=== PATIENT | male | born 1975 ===

== ENCOUNTER 2016-09-10 23:08 | Emergency (ER) | payer MEDICAID ==
[2016-09-10 23:08] VITALS: BMI 29.8
[2016-09-11 01:49] LABS: BASO % 0.4 % (0.0-2.0); EOS # 0.3 K/uL (0.0-0.7); EOS % 3.9 % (0.0-4.0); LYMPH # 1.4 K/uL (1.0-4.3); LYMPH % 21.2 % (20.0-40.0); MEAN CELL VOLUME 90.6 fL (80.0-94.0); MEAN CORPUSCULAR HEMOGLOBIN 30.9 pg (27.0-31.0); MEAN CORPUSCULAR HGB CONC 34.1 g/dL (33.0-37.0); MEAN PLATELET VOLUME 7.6 fL (7.2-11.7); MONO # 0.8 K/uL (0.0-0.8); NRBC % 0.1 % (0.0-2.0); RED CELL DISTRIBUTION WIDTH 12.6 % (11.5-14.5); WHITE BLOOD COUNT 6.5 K/uL (4.8-10.8)
[2016-09-11] MEDS ORDERED: Sodium Chloride 0.9% 1,000 ML IV ONE (01:54)
[2016-09-11] MEDS ORDERED: Iohexol 240 (50 ml) PO STA (01:54)
[2016-09-11 01:57] LABS: RBC URINE < 1 /hpf (0-3); URINE BILIRUBIN NEGATIVE (NEGATIVE); URINE BLOOD NEGATIVE (NEGATIVE); URINE COLOR Yellow (YELLOW); URINE GLUCOSE (UA) 3+ mg/dL (Normal); URINE KETONE TRACE mg/dL (NEGATIVE); URINE LEUKOCYTE ESTERASE NEG Leu/uL (Negative); URINE PROTEIN NEGATIVE (NEGATIVE); URINE UROBILINOGEN NORMAL mg/dL (0.2-1.0); WBC URINE < 1 /hpf (0-5)
[2016-09-11] MEDS ORDERED: DiphenhydrAMINE 50 mg/ml Inj IVP STA (01:59)
[2016-09-11 02:03] LABS: CHLORIDE 99 mmol/L (98-107)
[2016-09-11] MEDS ORDERED: Sodium Chloride 0.9% 1,000 ML ONE (02:03)
[2016-09-11] MEDS ORDERED: Iohexol 240 (50 ml) ONE (02:03)
[2016-09-11 02:04] LABS: POTASSIUM 3.9 mmol/L (3.6-5.2); SODIUM 138 mmol/L (132-148)
[2016-09-11] MEDS ORDERED: DiphenhydrAMINE 50 mg/ml Inj ONE (02:04)
[2016-09-11 02:06] LABS: ALB/GLOB RATIO 1.2 (1.0-2.1); ALKALINE PHOSPHATASE 81 U/L (38-126); AST/SGOT 18 U/L (17-59); BILIRUBIN,TOTAL 0.4 mg/dL (0.2-1.3); BLOOD UREA NITROGEN 12 mg/dL (9-20); CARBON DIOXIDE 23 mmol/L (22-30); GFR AFRICAN-AMERICAN > 60; TOTAL PROTEIN 7.4 g/dL (6.3-8.3)
[2016-09-11 02:07] LABS: ALT/SGPT 31 U/L (21-72); GLUCOSE,RANDOM 299 mg/dL (75-110)
[2016-09-11] MEDS ORDERED: Iodixanol 320 MG/ML 100 ML BOTTLE IV ONE (03:32)
[2016-09-11 03:47] VITALS: RESP 20
--- NOTE | 2016-09-11 04:47 | CT ---
EXAM: CT Abdomen and Pelvis With Intravenous Contrast. CLINICAL HISTORY: 41 years old, male; Pain; Abdominal pain; Prior surgery; Surgery type: Hernia; Patient HX: 08-26-16; Additional info: Abd pain TECHNIQUE: Axial computed tomography images of the abdomen and pelvis with intravenous contrast. This CT exam was performed using one or more of the following dose reduction techniques: automated exposure control, adjustment of the mA and/or kV according to patient size, and/or use of iterative reconstruction technique. Coronal and sagittal reformatted images were created and reviewed. CONTRAST: 100 mL of [id number] administered intravenously. EXAM DATE/TIME: Exam ordered 09/11/2016 1:59 AM COMPARISON: CT - ABD PELVIS PO IV CONTRAST 07/15/2016 1:24:13 AM FINDINGS: Lower thorax: Lung bases with mild dependent atelectatic change right greater than left. Air in the esophagus in keeping with reflux. Small hiatus hernia. ABDOMEN: Liver: 19.6cm mild steatosis Gallbladder and bile ducts: Gallbladder is collapsed. No calcified stones. No ductal dilation. Pancreas: Unremarkable. No mass. No ductal dilation. Spleen: Unremarkable. No splenomegaly. Adrenals: Unremarkable. No mass. Kidneys and ureters: No hydronephrosis. Cannot exclude a punctate distal left ureteral calculus noting that this is more likely to be a phlebolith, series 2 image 98, noting that this finding was present on prior CT dated July 15, 2016. Stomach and bowel: Surgical changes of the anterior abdominal wall, with no evidence of abdominal wall hernias containing bowel. Pelvis no evidence to suggest acute obstruction. Moderate fecal material in the colon, suggestion of air fluid levels, with diarrheal process possible. No mucosal thickening. Appendix: No findings to suggest acute appendicitis. PELVIS: Bladder: Unremarkable. No mass. Reproductive: As described on previous CT, heterogeneous prostate, noting that the previously seen high attenuation is much less evident on the current study and this suggests that that represented an area of hyperenhancement rather than calcification, and evaluation for neoplasm is suggested. ABDOMEN and PELVIS: Intraperitoneal space: No free intraperitoneal air. No significant fluid collection. Bones/joints: No acute fracture. No dislocation. Soft tissues: See above. Vasculature: Unremarkable. No abdominal aortic aneurysm. Lymph nodes: No pathologically enlarged nodes are seen. Series 2 image 90, in the right lower quadrant, there is redemonstration of a finding adjacent to the distal aspect of the right external iliac artery which could represent a 1.7 cm node or small chronic fluid collection of uncertain etiology. IMPRESSION: Noted that focal high attenuation in the prostate on the previous study may have represented enhancement rather than calcification, and this is not seen on the present examination. Noting possibility that that represented focal prostatic enhancement, evaluation for neoplasm of the prostate is suggested. Possible air-fluid levels in colon, correlation for a diarrheal process. No obstruction. No free air. No hydronephrosis. No findings suggesting appendicitis noting that the appendix itself is not identified clearly.
--- NOTE | 2016-09-11 05:05 | C.PDOC ---
Time Seen by Provider: 09/11/16 01:19 Chief Complaint (Nursing): Abdominal Pain History Per: Patient Onset/Duration Of Symptoms: Days (about 1 week) Current Symptoms Are (Timing): Still Present Severity: Moderate Location Of Pain/Discomfort: Diffuse Quality Of Discomfort: "Pain" Associated Symptoms: Nausea, Diarrhea Alleviating Factors: None Additional History Per: Prior Records Past Medical History Reviewed: Historical Data, Nursing Documentation, Vital Signs Vital Signs: Last Vital Signs Temp 97.6 F 09/11/16 04:57 Pulse 69 09/11/16 04:57 Resp 20 09/11/16 04:57 BP 159/66 H 09/11/16 04:57 Pulse Ox 100 09/11/16 04:57 - Medical History PMH: Bronchitis, Diabetes (IDDM), HTN, Pneumonia, Pulmonary Embolism Surgical History: Appendectomy, Hernia Repair Family History: States: Unknown Family Hx - Social History Hx Alcohol Use: No Hx Substance Use: No - Immunization History Hx Tetanus Toxoid Vaccination: Yes Hx Influenza Vaccination: Yes Hx Pneumococcal Vaccination: Yes Review Of Systems Except As Marked, All Systems Reviewed And Found Negative. Constitutional: Negative for: Fever, Weakness Cardiovascular: Negative for: Chest Pain Respiratory: Negative for: Shortness of Breath, Hemoptysis Gastrointestinal: Positive for: Abdominal Pain, Diarrhea. Negative for: Melena , Hematochezia, Hematemesis Genitourinary: Positive for: Dysuria (?). Negative for: Scrotal Pain Musculoskeletal: Negative for: Neck Pain, Back Pain Neurological: Negative for: Weakness, Numbness, Seizures, Altered Mental Status Physical Exam - Physical Exam Appears: Non-toxic, No Acute Distress Skin: Normal Color, Warm, Dry Head: Atraumatic, Normacephalic Eye(s): bilateral: PERRL, EOMI Neck: Normal ROM, Supple Cardiovascular: Rhythm Regular Respiratory: Normal Breath Sounds, No Accessory Muscle Use Gastrointestinal/Abdominal: Soft, Tenderness (nonspecific) Back: No CVA Tenderness Male Genital: No Testicular Swelling, No Scrotal Swelling Extremity: Normal ROM Neurological/Psych: Oriented x3, Normal Motor, Normal Sensation ED Course And Treatment - Laboratory Results Result Diagrams: 09/11/16 01:47 09/11/16 01:47 Lab Interpretation: No Acute Changes ECG: Interpreted By Me, Viewed By Me ECG Rhythm: Sinus Tachycardia, Nonspecific Changes ECG Interpretation: No Acute Changes Rate From EC O2 Sat by Pulse Oximetry: 100 Pulse Ox Interpretation: Normal - Radiology CXR: Interpreted by Me, Viewed By Me CXR Interpretation: Yes: No Acute Disease - CT Scan/US CT abdomen/pelvis Other Rad Studies (CT/US): Read By Radiologist, Radiology Report Reviewed CT/US Interpretation: IMPRESSION: Noted that focal high attenuation in the prostate on the previous study may. have represented enhancement rather than calcification, and this is not seen on. the present examination. Noting possibility that that represented focal. prostatic enhancement, evaluation for neoplasm of the prostate is suggested. . Possible air-fluid levels in colon, correlation for a diarrheal process. No. obstruction. No free air. No hydronephrosis. No findings suggesting. appendicitis noting that the appendix itself is not identified clearly. Progress Note: Pt feels better and wants to go home. Reassessment Condition: Improved Disposition Counseled Patient/Family Regarding: Studies Performed, Diagnosis, Need For Followup, Rx Given - Disposition Referrals: Saturnino Grady MD [Medical Doctor] - Per Brizuela MD [Medical Doctor] - Disposition: HOME/ ROUTINE Disposition Time: 05:07 Condition: IMPROVED Additional Instructions: Drink plenty of fluids. Follow up with your doctor for further evaluation of you abdominal pain and diarrhea. Follow up with your urologist for further evaluation of your prostate. Return to the ER if you develop fever, not tolerating fluids, worsening of symptoms or if you have any other concerns. Prescriptions: metroNIDAZOLE [Flagyl] 500 mg PO TID #30 tab Bismuth Subsalicylate [Pepto Bismol] 2 tab PO Q1 PRN #16 ctb PRN Reason: Diarrhea Instructions: Acute Diarrhea (ED) - Clinical Impression Clinical Impression: Diarrhea, Abdominal pain
[2016-09-11 05:23] VITALS: BP 145/83; PULSE 74; TEMP 98; O2SAT 97
--- NOTE | 2016-09-11 09:02 | RAD ---
PROCEDURE: CHEST RADIOGRAPH, 1 VIEW HISTORY: abd pain COMPARISON: None available. FINDINGS: LUNGS: Clear. PLEURA: No pneumothorax or pleural fluid seen. CARDIOVASCULAR: Normal. OSSEOUS STRUCTURES: Possible old fracture of the right clavicle. VISUALIZED UPPER ABDOMEN: Upper abdomen is suboptimally evaluated. OTHER FINDINGS: None. IMPRESSION: No focal airspace opacity.
--- NOTE | 2016-09-13 06:44 | CARD ---
APPROVED REPORT EKG Measurement Heart [id number] <Conclusion> Sinus tachycardia Inferior infarct, age undetermined Abnormal ECG
== END 2016-09-11 06:00 | disposition home or self-care (01) ==
LOC: C.ER 23:08
DX: R10.84 Generalized abdominal pain (principal); R19.7 Diarrhea, unspecified
CPT/HCPCS: 71010; 74177; 80053; 81001; 82948; 83690; 84484; 85025; 87086; 93005; 96361; 96374; 96375; 99285; J1200; J2270; J2405; J7040; Q9966; Q9967

== ENCOUNTER 2016-09-12 22:57 | Emergency (ER) | payer MEDICAID ==
[2016-09-12 22:57] VITALS: BMI 29.8
[2016-09-12 23:08] VITALS: BP 165/93; TEMP 97.4
--- NOTE | 2016-09-12 23:51 | C.PDOC ---
History Of Present Illness The patient, a 41y/o male, presents to the ED for evaluation of persistent left lower quadrant/ left scrotal and left leg pain which began several weeks ago. Patient reports left scrotal pain since 07/2016 S/P I&D procedure by Dr. Martinez. Patient reports history of abscesses to the same area in the last few years requiring multiple hospital admission; patient recently had a drain tube placed by a Urologist at [place] at the end of 06/2016. Patient is complaining of vomiting, diarrhea for 2 weeks. He states he is compliant with antibiotics which were recently prescribed. No fever. PERSIST L LQ/L SCROTAL AND L LEG PAIN FOR SEV. WEEKS. L SCROTAL PAIN SINCE 2016 S/P I&D DR MARTINEZ. HO abscesses to SAME AREA in the last few years requiring multiple hospital admissions; recently had drain tube placed by a Urologist at [place] end of 06/2016. CO VOMITING, DIARRHEA X 2 WKS, COMPLIANT W ABX RECENTLY PRESCRIBED. NO FEVER EXAM NONTOXIC NAD ABD NEG RN REANNA [employer]IC[employer]ERS TESTER. SCANT L SCROTAL/INNER THIGH REDNESS, RESOLVING CELLULITIS. NO SWELL, FOCAL TEND, FLUCTUANCE ABD NEG NEURO INTACT MDM MULT RECENT ER VISITS FOR SAME, IMPROVING CT A/P X 2 THIS MONTH, TESTICULAR US THIS MONTH. WBC STABLE OVER MULT VISITS. PS PENDING APPT W DR MARTINEZ IN 2-3 DAYS Chief Complaint (Nursing): Abdominal Pain History Per: Patient History/Exam Limitations: no limitations Onset/Duration Of Symptoms: Other (several weeks ) Current Symptoms Are (Timing): Still Present Additional History Per: Patient Past Medical History Reviewed: Historical Data, Nursing Documentation, Vital Signs Vital Signs: Last Vital Signs Temp 97.4 F L 09/12/16 23:02 Pulse 80 09/12/16 23:02 Resp 20 09/12/16 23:02 BP 165/93 H 09/12/16 23:02 Pulse Ox 100 09/13/16 00:31 - Medical History PMH: Bronchitis, Diabetes (IDDM), HTN, Pneumonia, Pulmonary Embolism Denies: HIV, Chronic Kidney Disease Surgical History: Appendectomy, Hernia Repair Family History: States: Unknown Family Hx - Social History Hx Alcohol Use: No Hx Substance Use: No - Immunization History Hx Tetanus Toxoid Vaccination: Yes Hx Influenza Vaccination: Yes Hx Pneumococcal Vaccination: Yes Review Of Systems Except As Marked, All Systems Reviewed And Found Negative. Constitutional: Negative for: Fever Gastrointestinal: Positive for: Vomiting, Abdominal Pain (left lower quadrant ) , Diarrhea Genitourinary: Positive for: Scrotal Pain (left-sided ) Musculoskeletal: Positive for: Leg Pain (left ) Physical Exam - Physical Exam Appears: Non-toxic, No Acute Distress Skin: Normal Color, Warm, Dry Head: Atraumatic Eye(s): bilateral: Normal Inspection Oral Mucosa: Moist Chest: Symmetrical, No Deformity Cardiovascular: Rhythm Regular Respiratory: Normal Breath Sounds Gastrointestinal/Abdominal: Soft, No Tenderness, No Guarding, No Rebound Male Genital: Other (+RN Reanna gas blender. Scant left scrotal/inner thigh redness, resolving cellulitis. No swelling, focal tenderness, or fluctuance ) Extremity: Normal ROM, Capillary Refill (less than 2 seconds ) Neurological/Psych: Oriented x3, Normal Speech, Normal Cognition Gait: Steady ED Course And Treatment - Laboratory Results Result Diagrams: 09/13/16 00:04 09/13/16 00:04 Lab Interpretation: No Changes Compared To Prior Results O2 Sat by Pulse Oximetry: 100 (on RA) Pulse Ox Interpretation: Normal Progress Note: Labs ordered and reviewed. Patient received Lomotil PO, Phenergen IM, and Toradol IV. Reevaluation Time: 00:39 Reassessment Condition: Improved (NO VD SINCE PRIOR EVAL. ADVISED FU SCHEDULED, CONT CURRENT MEDS) Medical Decision Making Medical Decision Making: MULT RECENT ER VISITS FOR SAME, IMPROVING CT A/P X 2 THIS MONTH, TESTICULAR US THIS MONTH. Disposition Counseled Patient/Family Regarding: Studies Performed, Diagnosis, Need For Followup, Rx Given - Disposition Referrals: Per Matrinez MD [Medical Doctor] - Disposition: HOME/ ROUTINE Disposition Time: 00:39 Condition: IMPROVED Prescriptions: Atropine/Diphenoxylate [Lonox 0.025 MG-2.5 MG] 1 tab PO QID PRN #8 tab PRN Reason: Diarrhea Instructions: Chronic Pain (ED), Gastroenteritis (ED) - Clinical Impression Clinical Impression: Chronic pain, Vomiting and diarrhea - Scribe Statement The provider has reviewed the documentation as recorded by the Scribe (Sylvia Amanda) Provider Attestation: All medical record entries made by the Scribe were at my direction and personally dictated by me. I have reviewed the chart and agree that the record accurately reflects my personal performance of the history, physical exam, medical decision making, and the department course for this patient. I have also personally directed, reviewed, and agree with the discharge instructions and disposition.
[2016-09-13] MEDS ORDERED: Atropine-Diphenoxylate 0.025-2.5 mg Tab PO STA (00:02)
[2016-09-13 00:11] LABS: BASO % 0.6 % (0.0-2.0); EOS # 0.3 K/uL (0.0-0.7); EOS % 5.6 % (0.0-4.0); HEMATOCRIT 38.3 % (35.0-51.0); LYMPH # 1.2 K/uL (1.0-4.3); LYMPH % 20.4 % (20.0-40.0); MEAN CELL VOLUME 90.9 fL (80.0-94.0); MEAN CORPUSCULAR HGB CONC 34.1 g/dL (33.0-37.0); MEAN PLATELET VOLUME 7.5 fL (7.2-11.7); MONO # 0.7 K/uL (0.0-0.8); MONO % 11.8 % (0.0-10.0); RED CELL DISTRIBUTION WIDTH 12.7 % (11.5-14.5); WHITE BLOOD COUNT 5.7 K/uL (4.8-10.8)
[2016-09-13 00:29] LABS: CHLORIDE 99 mmol/L (98-107); POTASSIUM 3.9 mmol/L (3.6-5.2); SODIUM 137 mmol/L (132-148)
[2016-09-13 00:31] LABS: GFR AFRICAN-AMERICAN > 60
[2016-09-13 00:32] LABS: BLOOD UREA NITROGEN 6 mg/dL (9-20); CALCIUM 8.7 mg/dl (8.6-10.4); CARBON DIOXIDE 23 mmol/L (22-30); GLUCOSE,RANDOM 318 mg/dL (75-110)
[2016-09-13] MEDS ORDERED: Atropine-Diphenoxylate 0.025-2.5 mg Tab ONE (00:44)
[2016-09-13 02:59] VITALS: PULSE 72; RESP 17; O2SAT 99
== END 2016-09-13 02:30 | disposition home or self-care (01) ==
LOC: C.ER 22:57
DX: N50.812 Left testicular pain (principal); G89.29 Other chronic pain; R11.10 Vomiting, unspecified; R19.7 Diarrhea, unspecified
CPT/HCPCS: 80048; 85025; 96372; 96374; 99284; J1885; J2550

== ENCOUNTER 2017-08-14 23:45 | Emergency (ER) | payer MEDICAID ==
[2017-08-14 23:46] VITALS: BMI 29.8
--- NOTE | 2017-08-15 00:51 | C.PDOC ---
History Of Present Illness 42 year old male presents to the ED for evaluation of abdominal pain with associated nausea/vomiting/diarrhea x5 days. He has had decreased PO intake. No fever or chills. He has no other acute complaints at this time. Time Seen by Provider: 08/15/17 00:42 Chief Complaint (Nursing): GI Problem History Per: Patient History/Exam Limitations: no limitations Onset/Duration Of Symptoms: Days Current Symptoms Are (Timing): Still Present Context: Other Severity: Moderate Pain Scale Rating Of: 4 Location Of Pain/Discomfort: Diffuse Radiation Of Pain To:: None Quality Of Discomfort: "Pain" Associated Symptoms: Nausea, Vomiting, Diarrhea, Loss Of Appetite. denies: Fever, Chills Exacerbating Factors: Food Alleviating Factors: None Last Bowel Movement: Today Recent travel outside of the [place]: No Additional History Per: Patient Past Medical History Reviewed: Historical Data, Nursing Documentation, Vital Signs Vital Signs: Last Vital Signs Temp 98.6 F 08/15/17 03:03 Pulse 81 08/15/17 03:03 Resp 18 08/15/17 03:03 BP 131/64 08/15/17 03:03 Pulse Ox 98 08/15/17 03:03 - Medical History PMH: Bronchitis, Diabetes (IDDM), HTN, Pneumonia, Pulmonary Embolism Denies: HIV, Chronic Kidney Disease Surgical History: Appendectomy, Hernia Repair Family History: States: Unknown Family Hx - Social History Hx Alcohol Use: No Hx Substance Use: No - Immunization History Hx Tetanus Toxoid Vaccination: Yes Hx Influenza Vaccination: Yes Hx Pneumococcal Vaccination: Yes Review Of Systems Constitutional: Negative for: Fever, Chills ENT: Negative for: Throat Pain Cardiovascular: Negative for: Chest Pain, Palpitations Respiratory: Negative for: Cough, Shortness of Breath Gastrointestinal: Positive for: Nausea, Vomiting, Abdominal Pain, Diarrhea Genitourinary: Negative for: Dysuria Musculoskeletal: Negative for: Back Pain Skin: Negative for: Rash Neurological: Negative for: Headache Psych: Negative for: Anxiety Physical Exam - Physical Exam Appears: Non-toxic, No Acute Distress Skin: Warm, Dry Head: Normacephalic Eye(s): right: Normal Inspection, left: Other (blind) Oral Mucosa: Dry Neck: Trachea Midline, Supple Chest: Symmetrical Cardiovascular: Rhythm Regular (Rate Regular ) Respiratory: No Rales, No Rhonchi, No Wheezing Gastrointestinal/Abdominal: Soft, Tenderness (diffuse), No Distention, No Guarding, No Rebound, Other (well healed subumbilical surgical scars ) Back: Normal Inspection Extremity: Normal ROM, Other (DP pulses 2+) Extremity: Bilateral: Atraumatic Neurological/Psych: Oriented x3 Gait: Steady ED Course And Treatment - Laboratory Results Result Diagrams: 08/15/17 01:19 08/15/17 01:19 ECG: Interpreted By Me, Viewed By Me ECG Rhythm: Sinus Rhythm (88), Nonspecific Changes O2 Sat by Pulse Oximetry: 98 Pulse Ox Interpretation: Normal Reevaluation Time: 03:55 Reassessment Condition: Improved Disposition Counseled Patient/Family Regarding: Studies Performed, Diagnosis, Need For Followup, Rx Given - Disposition Referrals: Saturnino Grady MD [Medical Doctor] - Disposition: HOME/ ROUTINE Disposition Time: 00:51 Condition: FAIR Additional Instructions: Please return if symptoms recur Prescriptions: Pantoprazole Sodium [Protonix] 20 mg PO DAILY #15 ect Prochlorperazine [Compazine Tab] 10 mg PO BID PRN #6 tab PRN Reason: Nausea/Vomiting Instructions: Nausea and Vomiting, Adult Forms: [employer] (Turkish) - Clinical Impression Clinical Impression: Abdominal pain, Nausea & vomiting - Scribe Statement The provider has reviewed the documentation as recorded by the Berry Castillo Provider Attestation: All medical record entries made by the Scribe were at my direction and personally dictated by me. I have reviewed the chart and agree that the record accurately reflects my personal performance of the history, physical exam, medical decision making, and the department course for this patient. I have also personally directed, reviewed, and agree with the discharge instructions and disposition.
[2017-08-15] MEDS ORDERED: Sodium Chloride 0.9% 1,000 ML IV ONE (01:06)
[2017-08-15] MEDS ORDERED: Sodium Chloride 0.9% 1,000 ML ONE (01:15)
[2017-08-15 01:23] LABS: BASO % 0.3 % (0.0-2.0); EOS # 0.5 K/uL (0.0-0.7); EOS % 7.9 % (0.0-4.0); HEMOGLOBIN 13.6 g/dL (12.0-18.0); LYMPH # 1.2 K/uL (1.0-4.3); LYMPH % 19.2 % (20.0-40.0); MEAN CELL VOLUME 91.7 fL (80.0-94.0); MEAN CORPUSCULAR HGB CONC 34.9 g/dL (33.0-37.0); MEAN PLATELET VOLUME 7.7 fL (7.2-11.7); MONO # 0.8 K/uL (0.0-0.8); MONO % 13.4 % (0.0-10.0); NEUT # 3.6 K/uL (1.8-7.0); NEUT % 59.2 % (50.0-75.0); RBC 4.26 Mil/uL (4.40-5.90); RED CELL DISTRIBUTION WIDTH 12.3 % (11.5-14.5)
[2017-08-15 01:25] LABS: URINE BILIRUBIN NEGATIVE (NEGATIVE); URINE BLOOD NEGATIVE (NEGATIVE); URINE CLARITY Hazy (Clear); URINE COLOR Yellow (YELLOW); URINE GLUCOSE (UA) 3+ mg/dL (Normal); URINE LEUKOCYTE ESTERASE NEG Leu/uL (Negative); URINE NITRATE NEGATIVE (NEGATIVE); URINE PROTEIN NEGATIVE (NEGATIVE); URINE UROBILINOGEN NORMAL mg/dL (0.2-1.0)
[2017-08-15 01:31] LABS: INR 0.9; PROTHROMBIN TIME 10.4 SECONDS (9.7-12.2)
[2017-08-15 01:36] LABS: ALB/GLOB RATIO 1.1 (1.0-2.1); ALBUMIN 3.9 g/dL (3.5-5.0); ALT/SGPT 37 U/L (21-72); AST/SGOT 18 U/L (17-59); BLOOD UREA NITROGEN 7 mg/dL (9-20); CALCIUM 8.6 mg/dl (8.6-10.4); GFR AFRICAN-AMERICAN > 60; GFR NON-AFRICAN AMERICAN > 60; LIPASE 57 U/L (23-300)
[2017-08-15 01:39] LABS: BARBITURATES, UR NEGATIVE (NEGATIVE); BENZODIAZEPINES, UR NEGATIVE (NEGATIVE); OPIATES, UR NEGATIVE (NEGATIVE); PHENCYCLIDINE, UR NEGATIVE (NEGATIVE)
[2017-08-15] MEDS ORDERED: Iodixanol 320 MG/ML 100 ML BOTTLE IV ONE (02:07)
[2017-08-15 03:04] VITALS: RESP 18
--- NOTE | 2017-08-15 03:35 | CT ---
EXAM: CT Abdomen and Pelvis With Intravenous Contrast EXAM DATE/TIME: 08/15/2017 1:50 AM CLINICAL HISTORY: 42 years old, male; Pain; Abdominal pain; Generalized; Prior surgery; Surgery date: 6+ months; Surgery type: Appendectomy , hernia repair; Additional info: Abd pain TECHNIQUE: Axial computed tomography images of the abdomen and pelvis with intravenous contrast. All CT scans at this facility use one or more dose reduction techniques, viz.: automated exposure control; ma/kV adjustment per patient size (including targeted exams where dose is matched to indication; i.e. head); or iterative reconstruction technique. Coronal and sagittal reformatted images were created and reviewed. CONTRAST: 100 mL of visipaque administered intravenously. COMPARISON: No relevant prior studies available. FINDINGS: The liver is normal. The spleen is normal. The pancreas is normal. No gallstones. No hydronephrosis or perinephric stranding. The small bowel appears normal. There is a moderate amount of stool throughout the colon. Status post appendectomy. Scattered mesenteric lymph nodes are noted. IMPRESSION: No acute findings.
[2017-08-15 05:18] VITALS: BP 139/79; PULSE 74; TEMP 97.8; O2SAT 95
--- NOTE | 2017-08-17 13:59 | CARD ---
APPROVED REPORT EKG Measurement Heart [id number] HI [id number] [id number] <Conclusion> Normal sinus rhythm Normal ECG
== END 2017-08-15 05:20 | disposition home or self-care (01) ==
LOC: C.ER 23:45
DX: R11.2 Nausea with vomiting, unspecified (principal); R10.84 Generalized abdominal pain; I10 Essential (primary) hypertension; E11.9 Type 2 diabetes mellitus without complications; Z79.4 Long term (current) use of insulin
CPT/HCPCS: 74177; 80053; 80324; 80345; 80346; 80349; 80353; 80358; 80361; 81001; 82009; 83690; 83992; 84484; 85025; 85610; 85730; 96361; 96374; 96375; 99284; J1885; J7040; Q0164; Q9967

== ENCOUNTER 2017-08-29 01:33 | Emergency (ER) | payer MEDICAID ==
[2017-08-29 01:33] VITALS: BMI 29.8
--- NOTE | 2017-08-29 03:36 | C.PDOC ---
History Of Present Illness Patient gave ahistory of lumpon the inguinal area lateral to the scroyum which started as a pimple.Patient dnies any fever . Occa. dysuria Chief Complaint (Nursing): Male Genitourinary Past Medical History - Medical History PMH: Bronchitis, Diabetes (IDDM), HTN, Pneumonia, Pulmonary Embolism Denies: HIV, Chronic Kidney Disease Surgical History: Appendectomy, Hernia Repair Family History: States: Unknown Family Hx - Social History Hx Alcohol Use: No Hx Substance Use: No - Immunization History Hx Tetanus Toxoid Vaccination: Yes Hx Influenza Vaccination: Yes Hx Pneumococcal Vaccination: Yes Review Of Systems Constitutional: Negative for: Fever, Chills, Sweats Cardiovascular: Negative for: Chest Pain, Palpitations, Orthopnea Respiratory: Negative for: Cough, Shortness of Breath, Hemoptysis Gastrointestinal: Negative for: Nausea, Vomiting, Abdominal Pain, Diarrhea Genitourinary: Negative for: Dysuria, Frequency, Incontinence, Hematuria, Penile Discharge, Scrotal Pain Musculoskeletal: Negative for: Neck Pain, Shoulder Pain, Arm Pain, Back Pain, Hand Pain, Leg Pain Skin: Negative for: Rash, Lesions Neurological: Negative for: Weakness, Numbness, Incoordination, Change in Speech Psych: Negative for: Anxiety, Depression, Psychosis, Suicidal ideation, Withdrawal Physical Exam - Physical Exam Appears: Non-toxic Skin: Normal Color, Warm, Dry Neck: Normal Chest: Symmetrical, No Deformity, No Tenderness Cardiovascular: Rhythm Regular Respiratory: Normal Breath Sounds Gastrointestinal/Abdominal: Normal Exam Back: Normal Inspection Male Genital: Normal Inspection, Inguinal Tenderness, Inguinal Swelling, No Scrotal Swelling, Other (presence of katelyn induration at the Right inguinal area lateral to he scrotum, tender t6o touch) Extremity: Normal ROM Neurological/Psych: Oriented x3, Normal Speech ED Course And Treatment - Laboratory Results Result Diagrams: 08/29/17 05:16 08/29/17 05:16 Disposition Counseled Patient/Family Regarding: Diagnosis - Disposition Referrals: [facility] [Outside] Disposition: HOME/ ROUTINE Disposition Time: 05:58 Condition: STABLE Prescriptions: Amoxicillin/Clavulanate [Augmentin 875 MG-125 MG] 1 tab PO BID #14 tab Naproxen 375 mg PO TIDPC #20 tablet Instructions: Cellulitis (Skin Infection), Adult (DC) Forms: [employer] (Belarusian) - POA Present On Arrival: None - Clinical Impression Clinical Impression: Right groin pain, Cellulitis
--- NOTE | 2017-08-29 05:04 | CT ---
EXAM: CT Pelvis Without Intravenous Contrast CLINICAL HISTORY: 42 years old, male; Signs and symptoms; Mass, lump, or swelling; Other: Right side between the thigh and testicle; Additional info: Perineum abscess TECHNIQUE: Axial computed tomography images of the pelvis without intravenous contrast. All CT scans at this facility use one or more dose reduction techniques, viz.: automated exposure control; ma/kV adjustment per patient size (including targeted exams where dose is matched to indication; i.e. head); or iterative reconstruction technique. 754 images are submitted. Coronal and sagittal reformatted images were created and reviewed. COMPARISON: CT - ABD PELVIS IV CONTRAST ONLY 2017-08-15 02:27 FINDINGS: Bowel: Unremarkable. No obstruction. No mucosal thickening. Appendix: Appendectomy. Intraperitoneal space: Unremarkable. No free air. No significant fluid collection. Bladder: Bladder distention 12.7 cm. Correlation with patient's voiding status is recommended. Reproductive: Enlarged prostate gland. Bones/joints: Short bilateral femoral necks. No acute fracture. No dislocation. Soft tissues: No drainable abscess is noted between the right thigh and testicle. Nonspecific infiltration is noted in the right perineum seen on image 123, 124 series 3 representing edema versus cellulitis. Vasculature: Pelvic phleboliths. No lower abdominal aortic aneurysm. Lymph nodes: Unremarkable. No enlarged lymph nodes. Peritoneum: There is stable fluid in the right anterior pelvis seen on image 61 series 3 extending into the right inguinal region this is unchanged from prior examination from August 15, 2017. IMPRESSION: 1. No drainable abscess is noted between the right thigh and testicle. Nonspecific infiltration is noted in the right perineum seen on image 123, 124 series 3 representing edema versus cellulitis.
[2017-08-29 05:18] LABS: BASO # 0.1 K/uL (0.0-0.2); BASO % 0.8 % (0.0-2.0); MONO # 1.1 K/uL (0.0-0.8); RED CELL DISTRIBUTION WIDTH 12.5 % (11.5-14.5)
[2017-08-29 05:23] LABS: EOS # 0.7 K/uL (0.0-0.7); EOS % 7.8 % (0.0-4.0); LYMPH # 1.3 K/uL (1.0-4.3); LYMPH % 14.2 % (20.0-40.0); MEAN CELL VOLUME 90.6 fL (80.0-94.0); MEAN CORPUSCULAR HGB CONC 35.3 g/dL (33.0-37.0); MEAN PLATELET VOLUME 7.2 fL (7.2-11.7); MONO % 12.3 % (0.0-10.0); NEUT % 64.9 % (50.0-75.0); NRBC % 0.2 % (0.0-2.0); RBC 4.68 Mil/uL (4.40-5.90); WHITE BLOOD COUNT 9.3 K/uL (4.8-10.8)
[2017-08-29 05:27] LABS: URINE BILIRUBIN NEGATIVE (NEGATIVE); URINE BLOOD NEGATIVE (NEGATIVE); URINE CLARITY Clear (Clear); URINE COLOR Straw (YELLOW); URINE GLUCOSE (UA) 3+ mg/dL (Normal); URINE LEUKOCYTE ESTERASE NEG Leu/uL (Negative); URINE PROTEIN NEGATIVE (NEGATIVE); URINE UROBILINOGEN NORMAL mg/dL (0.2-1.0)
[2017-08-29 05:34] LABS: ALB/GLOB RATIO 1.1 (1.0-2.1); ALBUMIN 4.5 g/dL (3.5-5.0); ALT/SGPT 24 U/L (21-72); AST/SGOT 50 U/L (17-59); BLOOD UREA NITROGEN 15 mg/dL (9-20); CALCIUM 9.5 mg/dl (8.6-10.4); GFR AFRICAN-AMERICAN > 60; GFR NON-AFRICAN AMERICAN > 60
[2017-08-29] MEDS ORDERED: cefTRIAXone IV 1 gm in Dextros 50 ML IVPB ONE (05:43)
[2017-08-29 06:25] VITALS: BP 120/70; PULSE 80; RESP 14; TEMP 98.5; O2SAT 99
== END 2017-08-29 06:26 | disposition home or self-care (01) ==
LOC: C.ER 01:33
DX: R10.31 Right lower quadrant pain (principal); L03.314 Cellulitis of groin
CPT/HCPCS: 72192; 80053; 81001; 85025; 87040; 87086; 96374; 99283; J0696; J1885